=== PATIENT | female | born 1990 | race Caucasian/White ===

== ENCOUNTER 2016-10-14 18:58 | Emergency (ER) | payer SELFPAY ==
[~2016-10-14] VITALS: Ht 167.6 cm; Wt 81.6 kg
[~2016-10-14 18:58] MED LIST: ACHD5005 PO; ALBU17AE3 IH; ALPR.25T PO; ATEN25TA PO; AZIT-21 PO; CEFP500T4 PO; CEPH500C PO; CITA10TA70 PO; CPR500T PO; CRS350T PO; CYCL10TA9 PO; DOXY100T2 PO; FLC1T PO; FLUT16SP22 NS; HYDR-3720 PO; HYDR-707 PO; HYDR1TAB; HYDR1TAB PO; HYDR1TAB66 PO; HYDROCODONE; LORA1TAB PO; METR500T PO; MTX2.5T PO; NAPR-243; NAPR-243 PO; NAPR-248; NAPR550T PO; ORPH100T PO; PROP-33; PROP1TAB61; RNT150T PO; TRAM50TA2; TRAZ50TA67; TRM50T PO
--- OUTSIDE RECORDS SUMMARY | 2016-10-14 19:06 | XMS REPORT | Continuity of Care Document ---
Author Author [facility] Organization [facility] Address Unknown Phone Unavailable Allergies Active Description Code Type Severity Reaction Onset Reported/Identified Relationship to Patient Clinical Status Yes hepatitis B virus vaccine [id number] Drug Allergy Unknown N /A 01/20/2006 Yes hepatitis B immune globulin [id number] Drug Allergy Mild N/A 03/19/2009 Yes clindamycin [id number] Drug Allergy Moderate SOA 04/15/2010 Medications Problems Date Dx Coded Attending Type Code Diagnosis Diagnosed By 03/09/2010 Ot 789.00 04/15/2010 Ot 786.05 04/15/2010 Ot 786.50 05/12/2010 Ot 786.50 05/12/2010 Ot 786.52 05/29/2010 Ot 300.00 05/29/2010 Ot 785.1 05/29/2010 Ot 786.05 05/29/2010 Ot 786.09 09/15/2010 Ot 789.04 11/08/2010 Ot 785.6 02/23/2011 Ot 730.27 02/23/2011 Ot 845.10 02/23/2011 Ot 959.7 02/23/2011 Ot E000.8 02/23/2011 Ot E849.0 02/23/2011 Ot E917.9 08/20/2011 Ot 922.31 08/20/2011 Ot 923.10 08/20/2011 Ot 959.19 08/20/2011 Ot E000.8 08/20/2011 Ot E821.0 11/14/2011 Ot 526.9 11/14/2011 Ot 784.0 01/31/2012 Ot 511.0 01/31/2012 Ot 786.50 01/31/2012 Ot 789.09 02/02/2012 Ot 558.9 02/02/2012 Ot 789.02 07/06/2012 Ot 287.5 07/06/2012 Ot V58.69 05/23/2015 Ot 683 05/23/2015 Ot 278.02 05/23/2015 Ot 287.5 05/23/2015 Ot 300.00 05/23/2015 Ot 305.1 05/23/2015 Ot 311 05/23/2015 Ot 696.1 05/23/2015 Ot V58.69 05/23/2015 Ot 287.5 05/23/2015 Ot V58.69 05/23/2015 Ot 238.71 05/23/2015 Ot 287.5 05/23/2015 Ot V58.69 05/23/2015 JEMIMA LENTZ MD Ot 782.62 05/23/2015 MARY CARMEN MICHAUD, JEMIMA Mathew Ot 780.60 05/23/2015 Ot 683 05/23/2015 Ot 278.02 05/23/2015 Ot 287.5 05/23/2015 Ot 300.00 05/23/2015 Ot 305.1 05/23/2015 Ot 311 05/23/2015 Ot 696.1 05/23/2015 Ot V58.69 05/23/2015 Ot 287.5 05/23/2015 Ot V58.69 05/23/2015 Ot 238.71 05/23/2015 Ot 287.5 05/23/2015 Ot V58.69 05/23/2015 JEMIMA LENTZ MD Ot 782.62 05/23/2015 MARY CARMEN MICHAUD, JEMIMA Mathew Ot 780.60 05/27/2015 MARY CARMEN MICHAUD, JEMIMA Mtahew Ot R63.5 08/01/2015 MARY CARMEN MICHAUD, JEMIMA Mathew Ot 782.62 08/01/2015 MARY CARMEN MICHAUD, JEMIMA Mathew Ot 780.60 08/01/2015 JEMIMA LENTZ MD Ot R63.5 08/01/2015 MARY CARMEN MICHAUD, JEMIMA Mathew Ot 782.62 08/01/2015 MARY CARMEN MICHAUD, JEMIMA Mathew Ot 780.60 08/08/2015 JEMIMA LENTZ MD Ot L40.0 08/19/2015 JEMIMA LENTZ MD Ot R63.5 10/16/2015 JEMIMA LENTZ MD Ot E66.9 12/16/2015 JEMIMA LENTZ MD Ot 782.62 FLUSHING 12/16/2015 JEMIMA LENTZ MD Ot 780.60 FEVER, UNSPECIFIED 12/16/2015 JEMIMA LENTZ MD Ot 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 Visit Date/Time Discharge Status Pt. Type Provider Facility Loc./Unit Complaint [id number] 05/23/2015 10:42:00 2014 23:59:59 CLS Outpatient JEMIMA LENTZ MD [facility] [id number] 06/11/2014 13:34:00 2013 23:59:59 CLS Outpatient JEMIMA LENTZ MD [facility] [id number] 04/17/2014 07:58:00 2013 23:59:59 CLS Outpatient JEMIMA LENTZ MD [facility] [id number] 10/03/2015 08:25:00 ACT Outpatient JEMIMA LENTZ MD [facility] [id number] 08/01/2015 08:26:00 ACT Outpatient JEMIMA LENTZ MD [facility] [id number] 05/23/2015 10:43:00 Document Registration [id number] 07/07/2012 00:00:00 Document Registration [id number] 05/18/2012 10:44:00 Document Registration [id number] 02/02/2012 09:56:00 Document Registration [id number] 02/01/2012 15:10:00 Document Registration [id number] 01/31/2012 22:02:00 Document Registration [id number] 11/18/2011 08:55:00 Document Registration [id number] 11/13/2011 21:46:00 Document Registration [id number] 10/27/2011 08:07:00 Document Registration [id number] 10/01/2011 08:13:00 Document Registration [id number] 08/20/2011 15:49:00 Document Registration [id number] 02/23/2011 00:17:00 Document Registration [id number] 11/08/2010 12:23:00 Document Registration [id number] 10/10/2010 10:45:00 Document Registration [id number] 09/14/2010 03:30:00 Document Registration [id number] 05/29/2010 18:02:00 Document Registration [id number] 05/11/2010 23:34:00 Document Registration [id number] 04/15/2010 20:16:00 Document Registration [id number] 03/08/2010 21:52:00 Document Registration
[2016-10-14] MEDS ORDERED: LORA0.5T PO (19:20)
--- NOTE | 2016-10-14 19:42 | ED General ---
General Chief Complaint: Abdominal/GI Problems Stated Complaint: RIGHT RIB CAGE PAIN Nursing Triage Note: REPORTS RIGHT LOWER RIB PAIN THAT RADIATES TO BACK ET RIGHT SHOULDER STARTING YESTERDAY. REPORTS THE PAIN IS CONSTANT. PAIN IMPROVED WHEN LAYING ON RIGHT SIDE. INCREASED HEARTBURN OVER THE WEEKEND. INCREASED FATIGUE. Nursing Sepsis Screen: No Definite Risk Source of Information: Patient, Other (friend) Exam Limitations: No Limitations History of Present Illness Time Seen by Provider: 19:42 Initial Comments 26 yo female patient presents to the ED with c/o right lower rib pain radiating into the right shoulder blade and right shoulder. Also complains of epigastric pain radiating straight through to the back. Patient reports initially having symptoms on Wednesday with improvement Wednesday. Return of symptoms yesterday. Decreased appetite. Has not had anything to eat since yesterday. Fatigue and chills beginning yesterday. Denies known injury. Timing/Duration: 24 Hours, Getting Worse Modifying Factors: worse with Eating, worse with Movement, worse with Other ( worse palpation, standing upright, lying flat, and riding in the car.) Allergies and Home Medications Allergies Coded Allergies: clindamycin (Unverified Allergy, Intermediate, SOA, 04/15/10) hepatitis B immune globulin (Unverified Allergy, Mild, 03/19/09) Hepatitis B Virus Vaccine (Verified Allergy, Unknown, 01/20/06) Home Medications Famotidine 20 Mg Tablet #20 20 MG PO BID Prescribed by: IZZY FRANCOIS on 10/14/162116 Lorazepam 0.5 Mg Tablet #30 0.5 MG PO Q12H PRN PRN ANXIETY (Reported) Ondansetron 8 Mg Tab.rapdis #10 8 MG PO Q6H PRN PRN NAUSEA Prescribed by: IZZY FRANCOIS on 10/14/162116 Tramadol HCl 50 Mg Tablet #14 50 MG PO Q4H PRN PRN PAIN Prescribed by: IZZY FRANCOIS on 10/14/162116 Constitutional: chillsNo dizziness, No fever, malaise other (fatigue) EENTM: no symptoms reported Respiratory: see HPINo cough, No short of breath, No stridor, No wheezing, other ((+) rib pain) Cardiovascular: no symptoms reported Gastrointestinal: see HPI abdominal pain (epigastric)No constipation, No diarrhea, heartburn loss of appetite nauseaNo vomiting Genitourinary: No decreased output, No discharge, No dysuria, No frequency, No hematuria, No pain Musculoskeletal: see HPI back pain joint painNo joint swelling Skin: no symptoms reported Psychiatric/Neurological: No Symptoms Reported All Other Systems Reviewed Negative Unless Noted: Yes (Negative excepted noted.) Past Zavjglu-Hmigxs-Jlgdru Hx Patient Social History Alcohol Use: Rarely Uses Recreational Drug Use: No Smoking Status: Current Everyday Smoker Type Used: Cigarettes 2nd Hand Smoke Exposure: No Recent Foreign Travel: No Contact w/Someone Who Travel: No Recent Infectious Disease Expo: No Recent Hopitalizations: No Surgeries HX Surgeries: Yes (exp lap when 10 years old; lap appy 08/11/09, LYMPH NODE EXCISION) Surgeries: Appendectomy, Hysterectomy Respiratory Hx Respiratory Disorders: No Cardiovascular Hx Cardiac Disorders: No Neurological Hx Neurological Disorders: No Reproductive System Hx Reproductive Disorders: Yes (severe endometriosis =>hysterectomy) Sexually Transmitted Disease: Yes (gonorrhea, chlamydia 2002 or 2003; treated) [employer] History: Hysterectomy Genitourinary Hx Genitourinary Disorders: No Gastrointestinal Hx Gastrointestinal Disorders: No Musculoskeletal Hx Musculoskeletal Disorders: No Endocrine Hx Endocrine Disorders: No HEENT HX ENT Disorders: No Psychosocial Hx Psychiatric Problems: No Blood Transfusions Hx Blood Disorders: Yes (thrombocytopenia) Adverse Reaction to a Blood Tr: No Reviewed Nursing Assessment Reviewed/Agree w Nursing PMH: Yes Family Medical History Significant Family History: No Pertinent Family Hx Physical Exam Vital Signs Vital Sign - Last 12Hours 10/14/16 10/14/16 19:13 23:22 Temp 98.2 Pulse 91 Resp 16 B/P 124/87 Pulse Ox 96 Capillary Refill : Less Than 3 Seconds General Appearance: No Apparent Distress WD/WN HEENT: PERRL/EOMI Pharynx Normal Neck: Normal Inspection Supple Respiratory: Chest Non Tender (unable to reproduce rib tenderness.) Lungs Clear Normal Breath Sounds No Respiratory Distress Cardiovascular: Regular Rate, Rhythm No Edema No Murmur Normal Peripheral Pulses Gastrointestinal: Normal Bowel Sounds Distended (mildly distended, but soft.) Guarding (RUQ with a (+) diehl's sign.)No Rebound, Tenderness (epigastric and RUQ tenderness.) Back: Normal Inspection No CVA Tenderness Other (rt posterior shoulder/upper back ttp.) Extremity: Normal Capillary Refill Normal Inspection Neurologic/Psychiatric: Alert Oriented x3 Normal Mood/Affect Skin: Normal Color Warm/Dry Comments RUQ pain worse with lying flat. Progress/Results/Core Measures Results/Orders Lab Results Laboratory Tests Test 10/14/16 22:15 Range/Units Urine Bacteria LARGE H /HPF Urine Bilirubin NEGATIVE NEGATIVE Urine Casts NONE /LPF Urine Clarity CLEAR Urine Color YELLOW Urine Crystals NONE /LPF Urine Culture Indicated YES Urine Glucose (UA) NEGATIVE NEGATIVE Urine Ketones NEGATIVE NEGATIVE Urine Leukocyte Esterase NEGATIVE NEGATIVE Urine Mucus SMALL H /LPF Urine Nitrite NEGATIVE NEGATIVE Urine Protein NEGATIVE NEGATIVE Urine RBC NONE /HPF Urine RBC (Auto) NEGATIVE NEGATIVE Urine Specific [place] 1.020 1.016-1.022 Urine Squamous Epithelial Cells 5-10 /HPF Urine Urobilinogen NORMAL NORMAL MG/DL Urine WBC 2-5 /HPF Urine pH 6 5-9 Micro Results Microbiology 10/14/16 Urine Culture - Final, Complete My Orders Orders-IZZY FRANCOIS Saline Lock/Iv-Start (10/14/16 20:01) Cbc With Automated Diff (10/14/16 20:01) Comprehensive Metabolic Panel (10/14/16 20:01) Hs C Reactive Protein (10/14/16 20:01) Lipase (10/14/16 20:01) Ua Culture If Indicated (10/14/16 20:01) Ondansetron Injection (Zofran Injectio (10/14/16 20:15) Ns Iv 1000 Ml (Sodium Chloride 0.9%) (10/14/16 20:01) Ketorolac Injection (Toradol Injection) (10/14/16 20:01) Us Gallbladder 21530 (10/14/16 20:01) Morphine Injection (Morphine Injection (10/14/16 22:20) Rx-Tramadol Hcl (Rx-Ultram) (10/14/16 22:20) Urine Culture (10/14/16 22:15) Medications Given in ED Vital Signs/I&O Blood Pressure Mean: 99 Diagnostic Imaging Diagonstic Imaging: Ultrasound Plain Films/CT/US/NM/MRI: other (gallbladder) Comments FINDINGS: The liver is normal in size, shape and echo texture. There are no focal lesions. No intra or extrahepatic biliary dilatation is present. The common bile duct is not dilated and measures 4 mm. Gallbladder is incompletely distended. There is no evidence of cholelithiasis, gallbladder wall thickening, or pericholecystic fluid. The visualized portions of the head and proximal body of the pancreas are within normal limits. The distal body and tail of the pancreas are not visualized due to overlying bowel gas. There is no ascites. The right kidney measures approximately 10.3 cm in length and has a normal appearance. The visualized portions of the IVC and aorta are normal. IMPRESSION : No cholelithiasis or sonographic evidence of acute cholecystitis. Negative liver/gallbladder sonogram. Dictated on workstation # [id number] Reviewed: Reviewed by Me (radiology report reviewed by me.) Departure Communication Progress Notes patient reports feeling better with medications in the ED, but pain is returning. Patient is A/Ox3, NAD. all laboratory and diagnostic findings discussed with the patient. Plan for discharge home. Will give patient one dose of morphine prior to discharge. All return precautions were discussed with the patient as described in the discharge instructions of this report. Patient voices understanding and agrees with the treatment plan. Impression Impression: Primary Impression: Right upper quadrant abdominal pain Additional Impressions: Epigastric abdominal pain Acute gastritis Qualified Code: K29.00 - Acute gastritis without bleeding Disposition: HOME, SELF-CARE Condition: Improved Departure-Patient Inst. Referrals: JEMIMA LENTZ MD (PCP) Primary Care Physician Patient Instructions: Acute Abdomen (Belly Pain), Adult (DC), Gastritis (DC), Ulcer and Gastritis Diet Add. Discharge Instructions: All discharge instructions reviewed with patient and/or family. Voiced understanding. Medications as instructed. Tylenol [id number] as directed for pain. Clear liquid diet until symptoms improve, then increase diet slowly to a low-fat, bland diet. No NSAIDs, spicy foods, fatty foods, carbonated beverages, caffeinated beverages, smoking, secondhand smoke, alcohol. Do not eat within 2 hours of lying down. Follow-up with the family practitioner for recheck and possible need for outpatient had a biliary scan versus upper endoscopy. Call for appointment time tomorrow morning. Return to the emergency department for worsened pain, fever, vomiting, shortness of air, difficulty swallowing, difficulty with urination, painful urination, or any other concerns. Scripts Tramadol HCl 50 Mg Pdwayl82 Mg PO Q4H PRN PAIN #14 TAB Ref 0 Prov:IZZY FRANCOIS 10/14/16 Ondansetron (Ondansetron Odt)8 Mg Tab.rapdis8 Mg PO Q6H PRN NAUSEA #10 TAB Ref 0 Prov:IZZY FRANCOIS FRANCISCO JAVIER 10/14/16 Famotidine (Pepcid)20 Mg Rucanh62 Mg PO BID #20 TAB Ref 0 Prov:IZZY FRANCOIS FRANCISCO JAVIER 10/14/16 Work/School Note: Work Release Form Date Seen in the Emergency Department: Oct 14, 2016 Return to Work: Oct 15, 2016 Restrictions: No Restrictions IZZY FRANCOIS FRANCISCO JAVIER Oct 14, 2016 19:42 Vital Signs/I&O Vital Sign - Last 12Hours 10/14/16 19:13 Temp 98.2 Pulse 91 Resp 16 B/P 124/87 Blood Pressure Mean: 99 Diagnostic Imaging Diagonstic Imaging: Ultrasound Plain Films/CT/US/NM/MRI: other (gallbladder) Comments FINDINGS: The liver is normal in size, shape and echo texture. There are no focal lesions. No intra or extrahepatic biliary dilatation is present. The common bile duct is not dilated and measures 4 mm. Gallbladder is incompletely distended. There is no evidence of cholelithiasis, gallbladder wall thickening, or pericholecystic fluid. The visualized portions of the head and proximal body of the pancreas are within normal limits. The distal body and tail of the pancreas are not visualized due to overlying bowel gas. There is no ascites. The right kidney measures approximately 10.3 cm in length and has a normal appearance. The visualized portions of the IVC and aorta are normal. IMPRESSION : No cholelithiasis or sonographic evidence of acute cholecystitis. Negative liver/gallbladder sonogram. Dictated on workstation # [id number] Reviewed: Reviewed by Me (radiology report reviewed by me.) Departure Impression Impression: Primary Impression: Right upper quadrant abdominal pain Additional Impressions: Epigastric abdominal pain Acute gastritis Qualified Code: K29.00 - Acute gastritis without bleeding Disposition: HOME, SELF-CARE Condition: Improved Departure-Patient Inst. Referrals: JEMIMA LENTZ MD (PCP) Primary Care Physician Patient Instructions: Acute Abdomen (Belly Pain), Adult (DC), Gastritis (DC), Ulcer and Gastritis Diet Add. Discharge Instructions: All discharge instructions reviewed with patient and/or family. Voiced understanding. Medications as instructed. Tylenol xmqv-ynl-[id number] as directed for pain. Clear liquid diet until symptoms improve, then increase diet slowly to a low-fat, bland diet. No NSAIDs, spicy foods, fatty foods, carbonated beverages, caffeinated beverages, smoking, secondhand smoke, alcohol. Do not eat within 2 hours of lying down. Follow-up with the family practitioner for recheck and possible need for outpatient had a biliary scan versus upper endoscopy. Call for appointment time tomorrow morning. Return to the emergency department for worsened pain, fever, vomiting, shortness of air, difficulty swallowing, difficulty with urination, painful urination, or any other concerns. Scripts Tramadol HCl 50 Mg Cjtcmc73 Mg PO Q4H PRN PAIN #14 TAB Ref 0 Prov:IZZY FRANCOIS 10/14/16 Ondansetron (Ondansetron Odt)8 Mg Tab.rapdis8 Mg PO Q6H PRN NAUSEA #10 TAB Ref 0 Prov:IZZY FRANCOIS 10/14/16 Famotidine (Pepcid)20 Mg Tlkart55 Mg PO BID #20 TAB Ref 0 Prov:IZZY FRANCOIS 10/14/16 Work/School Note: Work Release Form Date Seen in the Emergency Department: Oct 14, 2016 Return to Work: Oct 15, 2016 Restrictions: No Restrictions IZZY FRANCOIS Oct 14, 2016 19:42
[2016-10-14] MEDS ORDERED: KETOROLAC 30 MG/ML VIAL IVP STA (20:01)
[2016-10-14] MEDS ORDERED: NS IV 1000 ML 1,000 ML IV ONE (20:01)
[2016-10-14] MEDS ORDERED: ONDANSETRON 4 MG/2 ML (SDV) Z0FRAN IVP ONE (20:15)
[2016-10-14 20:19] LABS: BASOPHILS % (AUTO) 0 % (0-10); EOSINOPHILS # (AUTO) 0.1 10^3/uL (0.0-0.3); EOSINOPHILS % (AUTO) 2 % (0-10); LYMPHOCYTES # (AUTO) 1.9 X 10^3 (1.0-4.0); LYMPHOCYTES % (AUTO) 36 % (12-44); MEAN CORPUSCULAR HEMOGLOBIN 31 PG (25-34); MEAN CORPUSCULAR HGB CONC 35 G/DL (32-36); MEAN CORPUSCULAR VOLUME 90 FL (80-99); MONOCYTES # (AUTO) 0.4 X 10^3 (0.0-1.0); MONOCYTES % (AUTO) 8 % (0-12); NEUTROPHILS % (AUTO) 54 % (42-75); PLATELET COUNT 140 10^3/uL (130-400); RED BLOOD COUNT 4.58 10^6/uL (4.35-5.85); RED CELL DISTRIBUTION WIDTH 12.6 % (10.0-14.5); WHITE BLOOD COUNT 5.4 10^3/uL (4.3-11.0)
[2016-10-14 20:38] LABS: ALANINE AMINOTRANSFERASE 15 U/L (0-55); ANION GAP 12 MMOL/L (5-14); ASPARTATE AMINO TRANSFERASE 14 U/L (5-34); BILIRUBIN,TOTAL 0.2 MG/DL (0.1-1.0); BLOOD UREA NITROGEN 14 MG/DL (7-18); BUN/CREATININE RATIO 16; CALCIUM 8.9 MG/DL (8.5-10.1); CARBON DIOXIDE 22 MMOL/L (21-32); CHLORIDE 108 MMOL/L (98-107); CREATININE SERUM 0.88 MG/DL (0.60-1.30); GFR ESTIMATED > 60; GLUCOSE 89 MG/DL (70-105); LIPASE 19 U/L (8-78); POTASSIUM 3.7 MMOL/L (3.6-5.0); SODIUM 142 MMOL/L (135-145); TOTAL PROTEIN 6.5 G/DL (6.4-8.2); hs C REACTIVE PROTEIN 0.17 MG/DL (0.00-0.50)
--- NOTE | 2016-10-14 21:12 | Diagnostic Imaging Report ---
INDICATION: Right upper quadrant abdominal pain COMPARISON: None TECHNIQUE: Liver/gallbladder ultrasound. FINDINGS: The liver is normal in size, shape and echo texture. There are no focal lesions. No intra or extrahepatic biliary dilatation is present. The common bile duct is not dilated and measures 4 mm. Gallbladder is incompletely distended. There is no evidence of cholelithiasis, gallbladder wall thickening, or pericholecystic fluid. The visualized portions of the head and proximal body of the pancreas are within normal limits. The distal body and tail of the pancreas are not visualized due to overlying bowel gas. There is no ascites. The right kidney measures approximately 10.3 cm in length and has a normal appearance. The visualized portions of the IVC and aorta are normal. IMPRESSION: No cholelithiasis or sonographic evidence of acute cholecystitis. Negative liver/gallbladder sonogram. Dictated by: Dictated on workstation # [id number]
[2016-10-14] MEDS ORDERED: TRAM50TA2 PO (21:17)
[2016-10-14] MEDS ORDERED: ONDA8TAB13 PO (21:17)
[2016-10-14] MEDS ORDERED: FAMO-119 PO (21:17)
[2016-10-14] MEDS ORDERED: morphine INJ 10 MG/ML 1ML (SYR OR VIAL) IVP STA (22:20)
[2016-10-14 22:22] LABS: BILIRUBIN,URINE NEGATIVE (NEGATIVE); KETONES,URINE NEGATIVE (NEGATIVE); LEUKOCYTE ESTERASE ,URINE NEGATIVE (NEGATIVE); NITRITE,URINE NEGATIVE (NEGATIVE); PH,URINE 6 (5-9); PROTEIN,URINE NEGATIVE (NEGATIVE); UROBILINOGEN,URINE NORMAL (NORMAL)
[2016-10-14] MEDS: RX-TRAMADOL 50 MG (ULTRAM) TAB PPK#4 PO STA (23:20)
[2016-10-14 23:22] VITALS: BP 109/56
== END 2016-10-14 23:22 | disposition home or self-care (01) ==
LOC: EDUNIT# 18:58 → ER 19:01
DX: K29.70 Gastritis, unspecified, without bleeding (principal); R10.11 Right upper quadrant pain; F17.210 Nicotine dependence, cigarettes, uncomplicated
CPT/HCPCS: 36415; 76705; 80053; 81000; 83690; 85025; 86141; 87088; 96361; 96374; 96375

== ENCOUNTER → 2017-03-16 | Outpatient (CLI) | payer BC, OTHER ==
[~2017-03-16] MED LIST changes: +FAMO-119 PO; +LORA0.5T PO; +ONDA8TAB13 PO; +TRAM50TA2 PO
--- NOTE | 2017-03-16 12:45 | Diagnostic Imaging Report ---
PROCEDURE: US Thyroid. TECHNIQUE: Multiple real-time grayscale images were obtained of the thyroid in various projections. INDICATION: Globus sensation. FINDINGS: Right lobe of the thyroid measures 4.8 x 1.4 x 1.3 cm. The left lobe measures 4.2 x 1.3 x 1.3 cm. Both lobes are homogeneous in appearance. There are no nodules. There is no hypervascularity with Doppler imaging. IMPRESSION: Normal thyroid ultrasound. Dictated by: Dictated on workstation # [id number]
== END ==
LOC: RAD 08:01
PROVIDERS: ATTEND Family Medicine
DX: F45.8 Other somatoform disorders (principal); E66.9 Obesity, unspecified
CPT/HCPCS: 36415; 76536; 84443

== ENCOUNTER → 2017-06-01 | Outpatient (CLI) | payer BC, OTHER ==
[2017-06-01 16:12] LABS: MEAN PLATELET VOLUME 12.2 FL (7.4-10.4); RED BLOOD COUNT 4.88 10^6/uL (4.35-5.85); RED CELL DISTRIBUTION WIDTH 12.6 % (10.0-14.5); WHITE BLOOD COUNT 5.8 10^3/uL (4.3-11.0)
[2017-06-01 16:39] LABS: ANION GAP 10 MMOL/L (5-14); BLOOD UREA NITROGEN 16 MG/DL (7-18); BUN/CREATININE RATIO 21; CARBON DIOXIDE 23 MMOL/L (21-32); CHLORIDE 105 MMOL/L (98-107); CREATININE SERUM 0.77 MG/DL (0.60-1.30); GFR ESTIMATED > 60; GLUCOSE 106 MG/DL (70-105); POTASSIUM 3.3 MMOL/L (3.6-5.0); SODIUM 138 MMOL/L (135-145)
[2017-06-01 17:01] LABS: THYROID STIMULATING HORMONE 0.85 UIU/ML (0.35-4.94)
[2017-06-03 16:58] LABS: ANTI THYROID MICROSOMAL ABY 18.28 Units (0.00-100.00)
== END ==
LOC: LAB 15:51
PROVIDERS: ATTEND Nurse Practitioner Family
DX: R53.83 Other fatigue (principal); L65.9 Nonscarring hair loss, unspecified
CPT/HCPCS: 36415; 80048; 82728; 83540; 84443; 85027; 86376

== ENCOUNTER → 2018-03-15 | Outpatient (CLI) | payer OTHER ==
[2018-03-15 14:37] LABS: BASOPHILS % (AUTO) 0 % (0-10); EOSINOPHILS % (AUTO) 1 % (0-10); HEMATOCRIT 39 % (35-52); HEMOGLOBIN 13.8 G/DL (11.5-16.0); LYMPHOCYTES # (AUTO) 1.4 X 10^3 (1.0-4.0); LYMPHOCYTES % (AUTO) 31 % (12-44); MEAN CORPUSCULAR HEMOGLOBIN 32 PG (25-34); MEAN CORPUSCULAR HGB CONC 35 G/DL (32-36); MEAN CORPUSCULAR VOLUME 90 FL (80-99); MEAN PLATELET VOLUME 11.8 FL (7.4-10.4); MONOCYTES # (AUTO) 0.3 X 10^3 (0.0-1.0); MONOCYTES % (AUTO) 7 % (0-12); NEUTROPHILS # (AUTO) 2.8 X 10^3 (1.8-7.8); NEUTROPHILS % (AUTO) 62 % (42-75); PLATELET COUNT 122 10^3/uL (130-400); RED BLOOD COUNT 4.35 10^6/uL (4.35-5.85); RED CELL DISTRIBUTION WIDTH 12.6 % (10.0-14.5); WHITE BLOOD COUNT 4.5 10^3/uL (4.3-11.0)
[2018-03-15 15:01] LABS: ALANINE AMINOTRANSFERASE 9 U/L (0-55); ALBUMIN 4.3 GM/DL (3.2-4.5); ALKALINE PHOSPHATASE 37 U/L (40-136); BILIRUBIN,TOTAL 0.5 MG/DL (0.1-1.0); BUN/CREATININE RATIO 17; CALCIUM 8.9 MG/DL (8.5-10.1); CARBON DIOXIDE 22 MMOL/L (21-32); CHLORIDE 108 MMOL/L (98-107); CREATININE SERUM 0.77 MG/DL (0.60-1.30); GFR ESTIMATED > 60; GLUCOSE 84 MG/DL (70-105); POTASSIUM 3.7 MMOL/L (3.6-5.0); SODIUM 137 MMOL/L (135-145); TOTAL PROTEIN 7.3 GM/DL (6.4-8.2)
== END ==
LOC: LAB 14:11
PROVIDERS: ATTEND Nurse Practitioner Family
DX: L40.0 Psoriasis vulgaris (principal); Z79.899 Other long term (current) drug therapy
CPT/HCPCS: 36415; 80053; 85025; 86480

== ENCOUNTER → 2018-03-16 | Outpatient (CLI) | payer OTHER | LOC: LAB 15:50 | PROVIDERS: ATTEND Nurse Practitioner Family | DX: L40.0 Psoriasis vulgaris (principal); Z79.899 Other long term (current) drug therapy | CPT/HCPCS: 86480 ==

== ENCOUNTER 2020-04-18 10:50 | Outpatient (RCR) | payer OTHER ==
[~2020-04-18 10:50] MED LIST changes: -TRAM50TA2 PO
== END 2020-06-19 15:03 | disposition home or self-care (01) ==
PROVIDERS: ATTEND Orthopaedic Surgery Sports Medicine
DX: S93.492D Sprain of other ligament of left ankle, subsequent encounter (principal); X58.XXXD Exposure to other specified factors, subsequent encounter

== ENCOUNTER 2021-08-14 10:18 | Outpatient (CLI) | payer BC ==
[~2021-08-14] VITALS: Ht 165.1 cm; Wt 81.4 kg
[2021-08-14] MEDS ORDERED: LORA0.5P MC (10:50)
[2021-08-14] MEDS ORDERED: USTE45DI SQ (10:50)
[2021-08-14 11:06] VITALS: BP 104/59
[2021-08-14 11:16] LABS: BASOPHILS % (AUTO) 0 % (0-10); EOSINOPHILS # (AUTO) 0.1 10^3/uL (0.0-0.3); EOSINOPHILS % (AUTO) 2 % (0-10); HEMATOCRIT 40 % (35-52); HEMOGLOBIN 13.6 g/dL (11.5-16.0); LYMPHOCYTES # (AUTO) 1.4 10^3/uL (1.0-4.0); LYMPHOCYTES % (AUTO) 35 % (12-44); MEAN CORPUSCULAR HEMOGLOBIN 31 pg (25-34); MEAN CORPUSCULAR HGB CONC 34 g/dL (32-36); MEAN CORPUSCULAR VOLUME 91 fL (80-99); MEAN PLATELET VOLUME 12.2 fL (9.0-12.2); MONOCYTES # (AUTO) 0.2 10^3/uL (0.0-1.0); MONOCYTES % (AUTO) 6 % (0-12); NEUTROPHILS # (AUTO) 2.4 10^3/uL (1.8-7.8); NEUTROPHILS % (AUTO) 58 % (42-75); PLATELET COUNT 153 10^3/uL (130-400); WHITE BLOOD COUNT 4.1 10^3/uL (4.3-11.0)
[2021-08-14 11:30] LABS: CALCIUM 8.8 MG/DL (8.5-10.1); CREATININE SERUM 0.75 MG/DL (0.60-1.30); POTASSIUM 3.6 MMOL/L (3.6-5.0)
[2021-08-14 12:39] LABS: BAND NEUTROPHILS 1 %; BASOPHILS % (MANUAL) 0 %; EOSINOPHILS % (MANUAL) 2 %; LYMPHOCYTES % (MANUAL) 33 %; MONOCYTES % (MANUAL) 5 %; NEUTROPHILS % (MANUAL) 59 %; RBC MORPH NORMAL
== END 2021-08-14 12:02 ==
LOC: PREOP 10:18
PROVIDERS: ATTEND Otolaryngology Otolaryngology/Facial Plastic Surgery
DX: Z01.812 Encounter for preprocedural laboratory examination (principal); J35.01 Chronic tonsillitis; Z20.822 Contact with and (suspected) exposure to COVID-19
CPT/HCPCS: 36415; 80048; 85007; 85027; 87081; 87635

== ENCOUNTER 2021-08-19 09:05 | Day surgery (SDC) | payer BC ==
[~2021-08-19] VITALS: Ht 165.1 cm; Wt 81.4 kg
[2021-08-19] VITALS (10 sets, daily range): BP systolic 99–122; BP diastolic 65–81
[~2021-08-19 09:05] MED LIST changes: +LORA0.5P MC; +USTE45DI SQ
[2021-08-19] MEDS ORDERED: LACTATED RINGERS 1,000 ML IV PRN (09:15)
--- NOTE | 2021-08-19 10:36 | Progress Note-Pre Operative ---
Pre-Operative Progress Note H&P Reviewed The H&P was reviewed, patient examined and no changes noted. Date Seen by Provider: Aug 19, 2021 Time Seen by Provider: 10: Date H&P Reviewed: Aug 19, 2021 Time H&P Reviewed: :30 Pre-Operative Diagnosis: Rec Tons/ Tonsillar Hypertrophy PADDY CELESTE MD Aug 19, 2021 10:36
[2021-08-19] MEDS ORDERED: ROCURONIUM 10 MG/ML 5 ML SYRINGE IV ONE (10:39)
[2021-08-19] MEDS ORDERED: MIDAZOLAM 2 MG/2 ML (VERSED) VIAL ONE (10:39)
[2021-08-19] MEDS ORDERED: LIDOCAINE PF 2% 5 ML (XYLOCAINE) VIAL ONE (10:39)
[2021-08-19] MEDS ORDERED: fentaNYL INJ 100 MCG/2 ML AMP ONE (10:39)
[2021-08-19] MEDS ORDERED: proPOfol 200 MG/20 ML (DIPRIVAN) VIAL IV ONE (10:39)
--- NOTE | 2021-08-19 11:09 | Progress Note-Post Operative ---
Post-Operative Progess Note Surgeon (s)/Patch Sander (s) Surgeon PADDY CELESTE MD Patch Sander n/a Pre-Operative Diagnosis Rec Tons/ Tonsillar Hypertrophy Post-Operative Diagnosis same Post-Op Procedure Note Date of Procedure: Aug 19, 2021 Name of Procedure Performed: Tonsillectomy Description & Findings Description and Findings: n/a Anesthesia Type get Estimated Blood Loss minimal Packing none. Specimen(s) collected/removed tonsils PADDY CELESTE MD Aug 19, 2021 11:09
[2021-08-19] MEDS ORDERED: ONDANSETRON 4 MG/2 ML (SDV) Z0FRAN ONE (11:14)
[2021-08-19] MEDS ORDERED: APAP 325 MG/10.15 ML LIQ (TYLENOL) UDC PO PRN (11:15)
[2021-08-19] MEDS ORDERED: HYDROcodone/APAP 7.5MG-325 MG/15 ML (LORTAB) UDC PO PRN (11:15)
[2021-08-19] MEDS ORDERED: NS IV 1000 ML 1,000 ML IV SCH (11:15)
[2021-08-19] MEDS ORDERED: NEOSTIGMINE 3 MG/3 ML VIAL ONE (11:21)
[2021-08-19] MEDS ORDERED: GLYCOPYRROLATE 0.2 MG/ML (ROBINUL) 2 ML VIAL ONE (11:21)
[2021-08-19] MEDS ORDERED: SEVOFLURANE (ULTANE) 15 ML INHAL SOLN ONE (11:22)
[2021-08-19] MEDS ORDERED: morphine INJ 10 MG/ML 1ML (SYR OR VIAL) ONE (11:48)
[2021-08-19] MEDS ORDERED: AMOX250S5 PO (12:07)
[2021-08-19] MEDS ORDERED: DEXAINTSOL PO (12:07)
[2021-08-19] MEDS ORDERED: HYDR15SO8 PO (12:07)
[2021-08-19] MEDS ORDERED: TETRACAINESUCKERS MT (12:07)
--- NOTE | 2021-08-19 13:55 | Anesthesia-General Post-Op ---
General Patient Condition Mental Status/LOC: Same as Preop Cardiovascular: Satisfactory Nausea/Vomiting: Absent Respiratory: Satisfactory Pain: Controlled Complications: Absent Post Op Complications Complications None Follow Up Care/Instructions Patient Instructions None needed. Anesthesia/Patient Condition Patient Condition Patient is doing well, no complaints, stable vital signs, no apparent adverse anesthesia problems. No complications reported per nursing. MICHELLE SMITH CRNA Aug 19, 2021 13:55
== END 2021-08-19 14:35 | disposition home or self-care (01) ==
LOC: SDC 09:05
PROVIDERS: ATTEND Otolaryngology Otolaryngology/Facial Plastic Surgery
DX: J35.01 Chronic tonsillitis (principal); K31.89 Other diseases of stomach and duodenum; K21.00 Gastro-esophageal reflux disease with esophagitis, without bleeding; J45.909 Unspecified asthma, uncomplicated; E03.9 Hypothyroidism, unspecified; Z68.29 Body mass index [BMI] 29.0-29.9, adult; Z79.899 Other long term (current) drug therapy
CPT/HCPCS: 87081; 88304

== ENCOUNTER → 2022-03-04 | Outpatient (CLI) | payer BC ==
[~2022-03-04] MED LIST changes: +AMOX250S5 PO; +DEXAINTSOL PO; +HYDR15SO8 PO; +TETRACAINESUCKERS MT
[2022-03-04 13:13] LABS: BASOPHILS % (AUTO) 1 % (0-10); EOSINOPHILS # (AUTO) 0.1 10^3/uL (0.0-0.3); EOSINOPHILS % (AUTO) 1 % (0-10); HEMATOCRIT 40 % (35-52); HEMOGLOBIN 13.6 g/dL (11.5-16.0); LYMPHOCYTES # (AUTO) 1.5 10^3/uL (1.0-4.0); LYMPHOCYTES % (AUTO) 30 % (12-44); MEAN CORPUSCULAR HEMOGLOBIN 30 pg (25-34); MEAN CORPUSCULAR HGB CONC 34 g/dL (32-36); MEAN CORPUSCULAR VOLUME 90 fL (80-99); MEAN PLATELET VOLUME 11.9 fL (9.0-12.2); MONOCYTES # (AUTO) 0.3 10^3/uL (0.0-1.0); MONOCYTES % (AUTO) 7 % (0-12); NEUTROPHILS % (AUTO) 61 % (42-75); PLATELET COUNT 145 10^3/uL (130-400); WHITE BLOOD COUNT 4.8 10^3/uL (4.3-11.0)
[2022-03-04 13:36] LABS: ALBUMIN 4.3 GM/DL (3.2-4.5); BILIRUBIN,TOTAL 0.4 MG/DL (0.1-1.0); CALCIUM 8.9 MG/DL (8.5-10.1); CREATININE SERUM 0.78 MG/DL (0.60-1.30); POTASSIUM 3.7 MMOL/L (3.6-5.0); TOTAL PROTEIN 6.9 GM/DL (6.4-8.2)
== END ==
LOC: LAB 12:51
PROVIDERS: ATTEND Nurse Practitioner Family
DX: L40.0 Psoriasis vulgaris (principal)
CPT/HCPCS: 36415; 80053; 85025; 86480

== ENCOUNTER 2022-07-01 09:30 | Outpatient (CLI) | payer BC ==
[~2022-07-01] VITALS: Ht 165.1 cm; Wt 81.4 kg
[2022-07-01] VITALS (26 sets, daily range): BP systolic 88–112; BP diastolic 62–90
[2022-07-01] MEDS ORDERED: NS IV 1000 ML 1,000 ML ONE (09:59)
[2022-07-01] MEDS ORDERED: ATROPINE INJECTION 1 MG/10 ML SYR (ABBOTT) ONE (09:59)
[2022-07-01] MEDS ORDERED: NS IV 1000 ML 1,000 ML IV SCH (11:30)
--- NOTE | 2022-07-01 14:08 | Cardiology Tilt Table Test ---
Cardiology-Tilt Table Test Tilt Table Test Date 07/01/22 Baseline Vitals Vital Signs Date Time Temp Pulse Resp B/P (MAP) Pulse Ox O2 Delivery O2 Flow Rate FiO2 07/01/22 10:27 36.4 52 16 109/79 (89) 97 Room Air Vital Signs VS - Last 72 Hours, by Label 07/01/22 07/01/22 07/01/22 07/01/22 10:27 10:32 10:34 10:35 Temp 36.4 Pulse 52 55 78 80 Resp 16 18 19 19 B/P (MAP) 109/79 (89) 103/62 (76) 97/76 (83) 111/81 (91) Pulse Ox 97 97 98 98 O2 Delivery Room Air Room Air Room Air Room Air 07/01/22 07/01/22 07/01/22 07/01/22 10:36 10:37 10:38 10:39 Pulse 80 91 80 89 Resp 19 19 19 13 B/P (MAP) 111/81 (91) 104/82 (89) 112/80 (91) 108/79 (89) Pulse Ox 98 99 99 98 O2 Delivery Room Air Room Air Room Air Room Air 07/01/22 07/01/22 07/01/22 07/01/22 10:40 10:41 10:42 10:43 Pulse 85 89 92 96 Resp 17 12 12 15 B/P (MAP) 112/80 (91) 107/81 (90) 109/77 (88) 110/82 (91) Pulse Ox 98 98 98 97 O2 Delivery Room Air Room Air Room Air Room Air 07/01/22 07/01/22 07/01/22 07/01/22 10:44 10:45 10:46 10:47 Pulse 67 71 95 96 Resp 14 14 14 12 B/P (MAP) 109/68 (82) 105/70 (82) 108/74 (85) 102/62 (75) Pulse Ox 98 95 95 95 O2 Delivery Room Air Room Air Room Air Room Air 07/01/22 07/01/22 07/01/22 07/01/22 10:48 10:49 10:50 10:51 Pulse 96 125 137 137 Resp 13 14 13 9 B/P (MAP) 108/62 (77) 102/68 (79) 102/68 (79) 97/64 (75) Pulse Ox 94 98 94 92 O2 Delivery Room Air Room Air Room Air Room Air 07/01/22 07/01/22 07/01/22 07/01/22 10:52 10:53 10:54 10:55 Pulse 134 131 120 120 Resp 19 16 12 12 B/P (MAP) 102/85 (91) 93/74 (80) 105/90 (95) 108/68 (81) Pulse Ox 94 94 94 94 O2 Delivery Room Air Room Air Room Air Room Air 07/01/22 07/01/22 10:56 10:57 Pulse 106 60 Resp 12 12 B/P (MAP) 88/64 (72) 108/71 (83) Pulse Ox 94 94 O2 Delivery Room Air Room Air Patient was tilted to 75 degrees for [10] minutes, then returned to supine position, given [2] sublingual nitroglycerin tablets, then tilted again to 75 degrees for [15] minutes. During test, patient was: symptomatic (with dizziness and lightheadedness) In Conclusion;: Negative Tilt Table Test Patient was noted to be borderline hypotensive throughout the test. She was symptomatic with dizziness and lightheadedness, but not syncope. She was instructed to increase fluid and salt intake, instructed to wear compression stockings. This is Loyda Arguello PA-C, as a scribe for Dr. Lewis. LOYDA ROWE Jul 01, 2022 14:08
== END 2022-07-01 11:23 | disposition home or self-care (01) ==
LOC: CARD 09:30
PROVIDERS: ATTEND Internal Medicine Cardiovascular Disease
DX: R55 Syncope and collapse (principal); R00.2 Palpitations; R00.1 Bradycardia, unspecified
CPT/HCPCS: 93306; 93660

== ENCOUNTER → 2022-07-08 | Outpatient (CLI) | payer BC ==
[2022-07-08 13:23] VITALS: BP 107/66
--- NOTE | 2022-07-08 14:44 | Cardiology Stress Test Report ---
Stress Test Report Date of Procedure/Referring: Date of Procedure: Jul 08, 2022 PCP Trudy Lentz MD Admitting Physician Admitting Physician: Attending Physician: Cherise Lewis MD Indications: CP Baseline Heart Rate: 78 Baseline Blood Pressure: Blood Pressure Systolic: 107 Blood Pressure Diastolic: 66 Baseline EKG: Baseline EKG: NSR Summary/Conclusion: Summary: In summary, the patient started exercising with a baseline heart rate, blood pressure and EKG mentioned above Patient was able to exercise for a total of 6 minutes on Wagner protocol, METs 7.3 Maximum heart rate 171 Maximum blood pressure 147/73 Stress EKG, Minimal nondiagnostic changes Recovery EKG , Return to baseline Conclusion: 1. Good exercise tolerance for a total of 6 minutes on Wagner protocol, 7.3 METs, achieving 91 percent of maximum expected heart rate 2. Minimal nondiagnostic EKG changes with exercise returned to baseline during recovery 3. No arrhythmia was noted Copy Copies To 1: TRUDY LENTZ MD, BASHAR J MD Jul 08, 2022 14:44
== END ==
LOC: CARD 13:02
PROVIDERS: ATTEND Internal Medicine Cardiovascular Disease
DX: R07.9 Chest pain, unspecified (principal); R00.2 Palpitations
CPT/HCPCS: 93017

== ENCOUNTER → 2023-02-08 | Outpatient (CLI) | payer BC ==
--- NOTE | 2023-02-08 16:57 | Diagnostic Imaging Report ---
PROCEDURE: US Thyroid. TECHNIQUE: Multiple real-time grayscale images were obtained of the thyroid in various projections. INDICATION: Thyroid nodule COMPARISON: 03/16/2017 Right and left lobes of thyroid gland measure 4.5 x 1.1 x 1.5 cm and 4.3 x 1.0 x 1.5 cm, respectively. There is no evidence of dominant mass. Approximately 0.3 cm hypoechoic nodule in the left lobe of the thyroid gland in the midportion likely represents a cyst. No periglandular abnormalities identified. No hyperemia seen. IMPRESSION: Essentially unremarkable thyroid ultrasound apart from possible 0.3 cm left lobe cyst. Dictated by: Dictated on workstation # [id number]
== END ==
LOC: RAD 13:48
PROVIDERS: ATTEND Family Medicine
DX: E04.1 Nontoxic single thyroid nodule (principal)
CPT/HCPCS: 76536

== ENCOUNTER → 2023-03-31 | Outpatient (CLI) | payer BC ==
[2023-03-31 12:48] LABS: BASOPHILS % (AUTO) 0 % (0-10); EOSINOPHILS # (AUTO) 0.1 10^3/uL (0.0-0.3); EOSINOPHILS % (AUTO) 1 % (0-10); HEMATOCRIT 42 % (35-52); HEMOGLOBIN 13.6 g/dL (11.5-16.0); LYMPHOCYTES # (AUTO) 1.5 10^3/uL (1.0-4.0); LYMPHOCYTES % (AUTO) 30 % (12-44); MEAN CORPUSCULAR HEMOGLOBIN 30 pg (25-34); MEAN CORPUSCULAR HGB CONC 33 g/dL (32-36); MEAN CORPUSCULAR VOLUME 92 fL (80-99); MONOCYTES # (AUTO) 0.3 10^3/uL (0.0-1.0); MONOCYTES % (AUTO) 7 % (0-12); NEUTROPHILS # (AUTO) 3.1 10^3/uL (1.8-7.8); NEUTROPHILS % (AUTO) 62 % (42-75); PLATELET COUNT 134 10^3/uL (130-400); WHITE BLOOD COUNT 5.1 10^3/uL (4.3-11.0)
[2023-03-31 12:52] LABS: ALBUMIN 4.3 GM/DL (3.2-4.5); POTASSIUM 4.2 MMOL/L (3.6-5.0)
[2023-03-31 12:53] LABS: CALCIUM 8.8 MG/DL (8.5-10.1)
[2023-03-31 12:56] LABS: BILIRUBIN,TOTAL 0.5 MG/DL (0.1-1.0)
[2023-03-31 12:58] LABS: CREATININE SERUM 0.87 MG/DL (0.60-1.30)
== END ==
LOC: LAB 12:22
PROVIDERS: ATTEND Nurse Practitioner Family
DX: L40.0 Psoriasis vulgaris (principal)
CPT/HCPCS: 36415; 80053; 85025; 86480